=== PATIENT | female | born 1995 | race African-American/Black ===

== ENCOUNTER 2018-02-01 20:47 | Emergency (ER) | payer OTHER ==
--- NOTE | 2018-02-01 21:54 | RAD REPORT ---
EXAM DESCRIPTION: RAD - Ankle Right 3 View - 02/01/2018 9:38 pm CLINICAL HISTORY: Twisting injury to right ankle. COMPARISON: None. FINDINGS: No acute fracture or dislocation is seen. Mild soft tissue swelling is seen about the ankl e.
--- NOTE | 2018-02-01 22:15 | ER ---
Nurse's Notes [facility] Name: Gloria Yeh Age: 22 yrs Sex: Female : 1995 Arrival Date: 02/01/2018 Time: 21:01 Bed 9 Private MD: Diagnosis: Sprain of ankle Presentation: 02/01 21:11 Presenting complaint: Patient states: that she was walking down the stairs and twisted fc her right foot and ankle. Now unable to walk on it due to the pain. Transition of care: patient was not received from another setting of care. Onset of symptoms was February 01, 2018 at 20:45. Care prior to arrival: None. 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 - Social history:: Smoking status: Patient uses tobacco products, smokes one-half pack cigarettes per day. Screenin:13 Abuse screen: Denies threats or abuse. Nutritional screening: No deficits noted. fc Tuberculosis screening: No symptoms or risk factors identified. Fall Risk Fall in past 12 months (25 points). No secondary diagnosis (0 pts). No IV (0 pts). Ambulatory Aid- None/Bed Rest/Nurse Assist (0 pts). Gait- Normal/Bed Rest/Wheelchair (0 pts) Mental Status- Overestimates/Forgets Limitations (15 pts.). Total Posada Fall Scale indicates Low Risk Score (25-44 pts). Fall prevention measures have been instituted. Side Rails Up X 2 Placed close to Nursing Station Frequent Obs/Assesments occuring As available Patient and Family Educated on Fall Prevention Program and strategies. Assessment: 22:02 General: Appears in no apparent distress. uncomfortable, Behavior is calm, cooperative, aj1 appropriate for age. Pain: Complains of pain in right ankle Pain does not radiate. Pain currently is 8 out of 10 on a pain scale. Quality of pain is described as aching, sharp. Neuro: Level of Consciousness is awake, alert, obeys commands, Oriented to person, place, time, situation, Speech is normal, Facial symmetry appears normal. Cardiovascular: Patient's skin is warm and dry. Respiratory: Airway is patent Respiratory effort is even, unlabored, Respiratory pattern is regular, symmetrical. GI: No signs and/or symptoms were reported involving the gastrointestinal system. : No signs and/or symptoms were reported regarding the genitourinary system. EENT: No signs and/or symptoms were reported regarding the EENT system. Derm: No signs and/or symptoms reported regarding the dermatologic system. Skin is pink, warm \T\ dry. normal. Musculoskeletal: Range of motion: limited in right ankle. 22:27 Reassessment: Patient is alert, oriented x 3, equal unlabored respirations, skin bb warm/dry/pink. pt right ankle wrapped with an cameron wrap, pt verbalized understanding of and agrees to plan of care discharge instructions given pt ambulated to exit. Vital Signs: 21:12 Weight 83.91 kg (R); Height 5 ft. 2 in. (157.48 cm) (R); Pain 9/10; fc 22:02 BP 112 / 65; Pulse 75; Resp 16; Temp 97.7; Pulse Ox 100% on R/A; Pain 8/10; aj1 21:12 Body Mass Index 33.84 (83.91 kg, 157.48 cm) fc ED Course: 21:01 Patient arrived in ED. ds1 21:11 Triage completed. fc 21:12 Arm band placed on Patient placed in an exam room. fc 21:13 No provider procedures requiring assistance completed. fc 21:20 Unruly Valladares MD is Attending Physician. gs 21:23 Mela Woodard, ROXANNA is Primary Nurse. aj1 21:33 X-ray completed. Portable x-ray completed in exam room. Patient tolerated procedure bb2 well. 21:34 Ankle Right 3 View XRAY In Process Unspecified. EDMS 22:14 Godwin Renner MD is Referral Physician. gs 22:28 Patient has correct armband on for positive identification. bb 22:28 Patient did not have IV access during this emergency room visit. bb Administered Medications: No medications were administered Outcome: 22:14 Discharge ordered by . gs 22:28 Discharged to home ambulatory. bb 22:28 Condition: stable 22:28 Discharge instructions given to patient, Instructed on discharge instructions, follow up and referral plans. Demonstrated understanding of instructions, follow-up care. 22:28 Patient left the ED. bb Signatures: Dispatcher [employer] EDMela Quiñonez RN RN aj1 Shannon Chavez RN RN fc Sanford, Demi ds1 Ros Almaraz RN RN bb Unruly Valladares MD MD Bernadette Cardenas bb2
--- NOTE | 2018-02-01 22:15 | EDPHYS ---
Physician Documentation [facility] Name: Gloria Yeh Age: 22 yrs Sex: Female : 1995 Arrival Date: 02/01/2018 Time: 21:01 Bed 9 Private MD: ED Physician Unruly Valladares HPI: 02/01 22:11 This 22 yrs old Black Female presents to ER via Wheelchair with complaints of Ankle gs Injury, Fall Injury. 22:11 The patient presents with decreased range of motion, an injury. The complaints affect gs the right ankle. Onset: The symptoms/episode began/occurred acutely, yesterday. Context: The problem was sustained at home, resulted from a mis-step by the patient, on a floor edge, The mechanism of injury involved eversion of the affected ankle. The patient can partially bear weight on the affected extremity. Associated signs and symptoms: Pertinent negatives: fever, numbness, weakness. Modifying factors: the symptoms are aggravated by weight bearing. Severity of symptoms: At their worst the symptoms were moderate, in the emergency department the symptoms are unchanged. The patient has not experienced similar symptoms in the past. 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 - Social history:: Smoking status: Patient uses tobacco products, smokes one-half pack cigarettes per day. ROS: 22:11 All other systems are negative. gs Exam: 22:11 Head/Face: Normocephalic, atraumatic. Eyes: Pupils equal round and reactive to light, gs extra-ocular motions intact. Lids and lashes normal. Conjunctiva and sclera are non-icteric and not injected. Cornea within normal limits. Periorbital areas with no swelling, redness, or edema. ENT: Nares patent. No nasal discharge, no septal abnormalities noted. Tympanic membranes are normal and external auditory canals are clear. Oropharynx with no redness, swelling, or masses, exudates, or evidence of obstruction, uvula midline. Mucous membranes moist. Neck: Trachea midline, no thyromegaly or masses palpated, and no cervical lymphadenopathy. Supple, full range of motion without nuchal rigidity, or vertebral point tenderness. No Meningismus. Chest/axilla: Normal chest wall appearance and motion. Nontender with no deformity. No lesions are appreciated. Cardiovascular: Regular rate and rhythm with a normal S1 and S2. No gallops, murmurs, or rubs. Normal PMI, no JVD. No pulse deficits. Respiratory: Lungs have equal breath sounds bilaterally, clear to auscultation and percussion. No rales, rhonchi or wheezes noted. No increased work of breathing, no retractions or nasal flaring. Abdomen/GI: Soft, non-tender, with normal bowel sounds. No distension or tympany. No guarding or rebound. No evidence of tenderness throughout. Back: No spinal tenderness. No costovertebral tenderness. Full range of motion. Skin: Warm, dry with normal turgor. Normal color with no rashes, no lesions, and no evidence of cellulitis. Neuro: Awake and alert, GCS 15, oriented to person, place, time, and situation. Cranial nerves II-XII grossly intact. Motor strength 5/5 in all extremities. Sensory grossly intact. Cerebellar exam normal. Normal gait. 22:11 Constitutional: The patient appears alert, awake. 22:11 Musculoskeletal/extremity: ROM: no acute changes, Circulation is intact in all extremities. Sensation intact. Joints: the right ankle displays painful range of motion, swelling, tenderness. Vital Signs: 21:12 Weight 83.91 kg (R); Height 5 ft. 2 in. (157.48 cm) (R); Pain 9/10; fc 22:02 BP 112 / 65; Pulse 75; Resp 16; Temp 97.7; Pulse Ox 100% on R/A; Pain 8/10; aj1 21:12 Body Mass Index 33.84 (83.91 kg, 157.48 cm) fc MDM: 21:22 Patient medically screened. gs 22:11 Differential diagnosis: fracture, sprain, arthritis. Data reviewed: vital signs, nurses gs notes. Response to treatment: the patient's symptoms have mildly improved after treatment, and as a result, I will discharge patient. 02/01 21:23 Order name: Ankle Right 3 View XRAY; Complete Time: 22:06 gs Administered Medications: No medications were administered Disposition: 02/01/18 22:14 Discharged to Home. Impression: Sprain of ankle. - Condition is Stable. - Discharge Instructions: Ankle Sprain. - Work release form, Medication Reconciliation Form, Thank You Letter, Antibiotic Education, Prescription Opioid Use form. - Follow up: Godwin Renner MD; When: 2 - 3 days; Reason: Re-evaluation by your physician. Signatures: Dispatcher [employer] EDMS Shannon Chavez RN RN fc Ballard, Brenda, RN RN Unruly Lewis MD MD gs Corrections: (The following items were deleted from the chart) 21:25 21:14 Foot Right 3 View+RAD.RAD.BRZ ordered. EDMS EDMS
== END 2018-02-01 22:28 | disposition home or self-care (01) ==
LOC: ER 20:47
DX: S93.401A Sprain of unspecified ligament of right ankle, initial encounter (principal); W17.89XA Other fall from one level to another, initial encounter; Y93.01 Activity, walking, marching and hiking; Y92.9 Unspecified place or not applicable
CPT/HCPCS: 99283

== ENCOUNTER 2018-12-05 14:30 | Emergency (ER) | payer OTHER, SELFPAY ==
[2018-12-05] MEDS ORDERED: LIDOCAINE 1% MPF 5 ML VIAL ONE (16:17)
--- NOTE | 2018-12-05 16:33 | ER ---
Nurse's Notes [facility] Name: Gloria Yeh Age: 23 yrs Sex: Female : 1995 Arrival Date: 12/05/2018 Time: 14:31 Bed 9 Private MD: None, None Diagnosis: Laceration without foreign body of right hand Presentation: 12/05 15:00 Presenting complaint: Patient states: "I almost fell and the rail that I held on to had aa5 a nail so I cut my hand with the nail". Superficial laceration noted to palmar aspect of right ring finger, no active bleeding noted at this time. Transition of care: patient was not received from another setting of care. Complicating Factors: There are no complicating factors for this patient. Onset of symptoms was December 05, 2018. Risk Assessment: Do you want to hurt yourself or someone else? Patient reports no desire to harm self or others. Initial Sepsis Screen: Does the patient meet any 2 criteria? No. Patient's initial sepsis screen is negative. Does the patient have a suspected source of infection? No. Patient's initial sepsis screen is negative. Care prior to arrival: None. 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 - Social history:: Smoking status: Patient/guardian denies using tobacco. - Ebola Screening: : No symptoms or risks identified at this time. Screenin:06 Abuse screen: Denies threats or abuse. Denies injuries from another. Nutritional aj screening: No deficits noted. Tuberculosis screening: No symptoms or risk factors identified. Fall Risk None identified. Assessment: 16:06 General: Appears in no apparent distress. comfortable, Behavior is calm, cooperative, aj appropriate for age. Pain: Complains of pain in palmar aspect of proximal phalanx of right middle finger. Neuro: Level of Consciousness is awake, alert, obeys commands, Oriented to person, place, time, situation, Appropriate for age. Respiratory: Airway is patent Trachea midline Respiratory effort is even, unlabored, Respiratory pattern is regular, symmetrical. Derm: Skin is intact, is healthy with good turgor, Skin is pink, warm \\T\\ dry. normal. Musculoskeletal: Reports pain in right hand. Injury Description: Laceration sustained to palmar aspect of proximal phalanx of right middle finger is 0.5 to 2.5 cm long. Vital Signs: 15:02 BP 129 / 90; Pulse 79; Resp 16 S; Temp 98.0(TE); Pulse Ox 99% on R/A; Pain 5/10; aa5 ED Course: 14:31 Patient arrived in ED. mr 14:31 None, None is Private Physician. mr 14:59 Arm band placed on. aa5 15:01 Triage completed. aa5 15:35 Daysi Nuñez, ROXANNA is Primary Nurse. aj 15:36 Adryan Vela PA is PHCP. jr8 15:36 Unruly Valladares MD is Attending Physician. jr8 16:07 Patient did not have IV access during this emergency room visit. aj 16:32 Assist provider with laceration repair on right hand that was 2.5 cm. or less using iwnnie sutures. Set up tray. Performed by Adryan ROBBINS Patient tolerated well. 17:02 Patient has correct armband on for positive identification. aj Administered Medications: 16:32 Drug: Lidocaine (1 %) 5 mg Route: Infiltration; aj 16:39 Drug: Tetanus-Diphtheria Toxoid Adult 0.5 ml {Compatibility Test Engineer: [employer]. Exp: aj 11/12/2020. Lot #: [id number]. } Route: IM; Site: right deltoid; 17:02 Follow up: Response: No adverse reaction aj Outcome: 16:33 Discharge ordered by . jrHarish 17:01 Discharged to home ambulatory. aj 17:01 Condition: good 17:01 Discharge instructions given to patient, Instructed on discharge instructions, follow up and referral plans. Demonstrated understanding of instructions, follow-up care. 17:02 Patient left the ED. aj Signatures: Daysi Nuñez, RN Chloé Fitch TramaineHilary RN RN aa5 Roszak, Josh, PA PA jrHarish
--- NOTE | 2018-12-05 16:34 | EDPHYS ---
Physician Documentation [facility] Name: Gloria Yeh Age: 23 yrs Sex: Female : 1995 Arrival Date: 12/05/2018 Time: 14:31 Bed 9 Private MD: None, None ED Physician Unruly Valladares HPI: 12/05 16:27 This 23 yrs old Black Female presents to ER via Ambulatory with complaints of jr8 Laceration To Hand. 16:27 The laceration(s) is(are) located on the right hand. Onset: The symptoms/episode jr8 began/occurred acutely, today. Associated signs and symptoms: The patient has no apparent associated signs or symptoms. The patient has not experienced similar symptoms in the past. The patient has not recently seen a physician. Accidently scrapped right hand on nail causing small laceration to MTP region helm aspect . 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 - Social history:: Smoking status: Patient/guardian denies using tobacco. - Ebola Screening: : No symptoms or risks identified at this time. ROS: 16:27 Eyes: Negative for injury, pain, redness, and discharge, ENT: Negative for injury, jr8 pain, and discharge, Neck: Negative for injury, pain, and swelling, Cardiovascular: Negative for chest pain, palpitations, and edema, Respiratory: Negative for shortness of breath, cough, wheezing, and pleuritic chest pain, Abdomen/GI: Negative for abdominal pain, nausea, vomiting, diarrhea, and constipation, Back: Negative for injury and pain, MS/Extremity: Negative for injury and deformity, Neuro: Negative for headache, weakness, numbness, tingling, and seizure. 16:27 Skin: Positive for laceration(s), of the right hand. Exam: 16:27 Eyes: Pupils equal round and reactive to light, extra-ocular motions intact. Lids and jr8 lashes normal. Conjunctiva and sclera are non-icteric and not injected. Cornea within normal limits. Periorbital areas with no swelling, redness, or edema. ENT: Nares patent. No nasal discharge, no septal abnormalities noted. Tympanic membranes are normal and external auditory canals are clear. Oropharynx with no redness, swelling, or masses, exudates, or evidence of obstruction, uvula midline. Mucous membranes moist. Neck: Trachea midline, no thyromegaly or masses palpated, and no cervical lymphadenopathy. Supple, full range of motion without nuchal rigidity, or vertebral point tenderness. No Meningismus. Cardiovascular: Regular rate and rhythm with a normal S1 and S2. No gallops, murmurs, or rubs. Normal PMI, no JVD. No pulse deficits. Respiratory: Lungs have equal breath sounds bilaterally, clear to auscultation and percussion. No rales, rhonchi or wheezes noted. No increased work of breathing, no retractions or nasal flaring. Abdomen/GI: Soft, non-tender, with normal bowel sounds. No distension or tympany. No guarding or rebound. No evidence of tenderness throughout. Back: No spinal tenderness. No costovertebral tenderness. Full range of motion. MS/ Extremity: Pulses equal, no cyanosis. Neurovascular intact. Full, normal range of motion. Neuro: Awake and alert, GCS 15, oriented to person, place, time, and situation. Cranial nerves II-XII grossly intact. Motor strength 5/5 in all extremities. Sensory grossly intact. Cerebellar exam normal. Normal gait. 16:27 Skin: injury, laceration(s), the wound is approximately 2 cm(s), with a depth of .5 cm(s), of the MTP helm aspect right hand over the 3rd digit, that can be described as no foreign body, linear, without bleeding. Vital Signs: 15:02 BP 129 / 90; Pulse 79; Resp 16 S; Temp 98.0(TE); Pulse Ox 99% on R/A; Pain 5/10; aa5 Laceration: 16:27 Wound Repair of 2cm ( 0.8in ) subcutaneous laceration to right hand. Linear shaped.. jr8 Distal neuro/vascular/tendon intact. Anesthesia: Local anesthetic administered with 1 mls of 1% lidocaine. Wound prep: Moderate cleansing with betadine, Wound irrigation with saline, Wound explored extensively. Skin closed with 3 4-0 Prolene using interrupted sutures and sterile technique. Patient tolerated well. MDM: 15:36 Patient medically screened. jr8 16:32 Data reviewed: vital signs, nurses notes, and as a result, I will discharge patient. jr8 Data interpreted: Pulse oximetry: on room air is 99 %. Interpretation: normal. Counseling: I had a detailed discussion with the patient and/or guardian regarding: the historical points, exam findings, and any diagnostic results supporting the discharge/admit diagnosis, the need for outpatient follow up, a family practitioner, to return to the emergency department if symptoms worsen or persist or if there are any questions or concerns that arise at home. 12/05 16:32 Order name: Prolene, Sutures; Complete Time: 16:32 12/05 16:32 Order name: Dressing - Wound; Complete Time: 16:32 12/05 16:32 Order name: Gloves, Sterile; Complete Time: 16:32 12/05 16:32 Order name: Setup Suture Tray; Complete Time: 16:32 Administered Medications: 16:32 Drug: Lidocaine (1 %) 5 mg Route: Infiltration; 16:39 Drug: Tetanus-Diphtheria Toxoid Adult 0.5 ml {Casting Carrier: [employer]. Exp: aj 11/12/2020. Lot #: [id number]. } Route: IM; Site: right deltoid; 17:02 Follow up: Response: No adverse reaction Disposition: 17:16 Co-signature as Attending Physician, Unruly Valladares MD. Disposition: 12/05/18 16:33 Discharged to Home. Impression: Laceration without foreign body of right hand. - Condition is Stable. - Discharge Instructions: Laceration Care, Adult. - Work release form, Medication Reconciliation Form, Thank You Letter, Antibiotic Education, Prescription Opioid Use form. - Follow up: Private Physician; When: 7 - 10 days; Reason: Wound Recheck, Recheck today's complaints, Continuance of care, Staple/Suture removal, Re-evaluation by your physician. - Problem is new. - Symptoms have improved. Signatures: Daysi Nuñez RN RN aj Calderon, Audri, RN RN aa5 Adryan Vela PA PA jr8 Unruly Valladares MD MD Corrections: (The following items were deleted from the chart) 17:02 16:33 12/05/2018 16:33 Discharged to Home. Impression: Laceration without foreign body aj of right hand. Condition is Stable. Forms are Medication Reconciliation Form, Thank You Letter, Antibiotic Education, Prescription Opioid Use. Follow up: Private Physician; When: 7 - 10 days; Reason: Wound Recheck, Recheck today's complaints, Continuance of care, Staple/Suture removal, Re-evaluation by your physician. Problem is new. Symptoms have improved. jr8
[2018-12-05] MEDS ORDERED: TETANUS & DIPHTHERIA TOX,ADULT 0.5 ML VIAL ONE (16:47)
== END 2018-12-05 17:02 | disposition home or self-care (01) ==
LOC: ER 14:30
PROC: 0JQJ0ZZ Repair Right Hand Subcutaneous Tissue and Fascia, Open Approach (ICD-10-PCS; principal; 2018-12-05)
DX: S61.411A Laceration without foreign body of right hand, initial encounter (principal); W22.8XXA Striking against or struck by other objects, initial encounter; Y93.89 Activity, other specified; Y92.9 Unspecified place or not applicable; Z23 Encounter for immunization
CPT/HCPCS: 90714; 99283

== ENCOUNTER 2019-10-28 09:46 | Emergency (ER) | payer SELFPAY ==
[2019-10-28] MEDS ORDERED: AZITHROMYCIN 250 MG TAB ONE (10:22)
--- NOTE | 2019-10-28 10:47 | ER ---
Nurse's Notes [facility] Name: Gloria Yeh Age: 23 yrs Sex: Female : 1995 Arrival Date: 10/28/2019 Time: 09:50 Bed 7 Private MD: None, None Diagnosis: Bronchitis, not specified as acute or chronic;Fever, unspecified Presentation: 10/28 09:58 Presenting complaint: Patient states: sore throat, cough, ear ache and intermittent ss fever x 2-3 days. Transition of care: patient was not received from another setting of care. Onset of symptoms was October 25, 2019. Risk Assessment: Do you want to hurt yourself or someone else? Patient reports no desire to harm self or others. Initial Sepsis Screen: Does the patient meet any 2 criteria? HR > 90 bpm. Does the patient have a suspected source of infection? No. Patient's initial sepsis screen is negative. Care prior to arrival: None. 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 - Social history:: Smoking status: Patient uses tobacco products, smokes one pack cigarettes per day. - Ebola Screening: : Patient denies exposure to infectious person Patient denies travel to an Ebola-affected area in the 21 days before illness onset. - Family history:: not pertinent. Screenin:04 Abuse screen: Denies threats or abuse. Denies injuries from another. Nutritional ca1 screening: No deficits noted. Tuberculosis screening: No symptoms or risk factors identified. Fall Risk None identified. Assessment: 10:04 General: Appears in no apparent distress. comfortable, Behavior is calm, cooperative, ca1 appropriate for age. General: Reports fever for > 3 days. Pain: Complains of pain in right ear Pain currently is 6 out of 10 on a pain scale. Pain began 2-3 days ago. Is continuous. Neuro: Level of Consciousness is awake, alert, obeys commands, Oriented to person, place, time, situation, Appropriate for age. Cardiovascular: Heart tones S1 S2 present Capillary refill < 3 seconds Patient's skin is warm and dry. Respiratory: Airway is patent Respiratory effort is even, unlabored, Respiratory pattern is regular, symmetrical, Breath sounds are clear bilaterally. GI: Abdomen is round non-distended, Bowel sounds present X 4 quads. Abd is soft and non tender X 4 quads. : No deficits noted. No signs and/or symptoms were reported regarding the genitourinary system. EENT: Tympanic membrane clear on left ear and right ear Ear canal clear on left ear and right ear Throat is pink. EENT: Reports nasal congestion. Derm: Skin is intact, is healthy with good turgor, Skin is pink, warm \T\ dry. Musculoskeletal: Circulation, motion, and sensation intact. Capillary refill < 3 seconds, Range of motion: intact in all extremities. 10:09 Reassessment: provider at bedside at this time. tw2 10:45 Reassessment: Patient appears in no apparent distress at this time. Patient is alert, ca1 oriented x 3, equal unlabored respirations, skin warm/dry/pink. Vital Signs: 09:57 BP 129 / 77; Pulse 94; Resp 16; Temp 98.2(TE); Pulse Ox 100% on R/A; Weight 81.65 kg; ss Height 5 ft. 2 in. (157.48 cm); Pain 6/10; 10:45 BP 117 / 84; Pulse 96; Resp 17 S; Temp 98.2(O); Pulse Ox 100% on R/A; ca1 09:57 Body Mass Index 32.92 (81.65 kg, 157.48 cm) ED Course: 09:50 Patient arrived in ED. mr 09:50 None, None is Private Physician. mr 09:51 Son Yeh MD is Attending Physician. jenny 09:57 Arm band placed on right wrist. ss 09:59 Triage completed. ss 10:01 Sarah Edmondson, ROXANNA is Primary Nurse. ca1 10:04 Patient has correct armband on for positive identification. Bed in low position. Call ca1 light in reach. Side rails up X 1. Pulse ox on. NIBP on. Warm blanket given. 10:04 No provider procedures requiring assistance completed. Patient did not have IV access ca1 during this emergency room visit. 10:18 Flu Sent. ca1 Administered Medications: 10:21 Drug: Zithromax 500 mg Route: PO; ca1 10:45 Follow up: Response: No adverse reaction ca1 10:53 Drug: predniSONE 40 mg Route: PO; ca1 10:53 Follow up: Response: Medication administered at discharge. ca1 Outcome: 10:46 Discharge ordered by . jenny 10:56 Discharged to home ambulatory. ca1 10:56 Condition: stable 10:56 Discharge instructions given to patient, Instructed on discharge instructions, follow up and referral plans. medication usage, Demonstrated understanding of instructions, follow-up care, medications, Prescriptions given X 4. 10:56 Patient left the ED. ca1 10:56 Discharged to home ambulatory. tw2 10:56 Condition: stable Signatures: Son Yeh MD MD cha Rivera, Mary mr Smirch, Shelby, RN RN Lyndsey Jaramillo RN RN tw2 Sarah Edmondson RN RN ca1
--- NOTE | 2019-10-28 10:47 | EDPHYS ---
Physician Documentation [facility] Name: Gloria Yeh Age: 23 yrs Sex: Female : 1995 Arrival Date: 10/28/2019 Time: 09:50 Bed 7 Private MD: None, None ED Physician Son Yeh HPI: 10/28 10:13 This 23 yrs old Black Female presents to ER via Ambulatory with complaints of Sore jenny Throat, Cough, Ear Pain. 10:13 The patient presents with sore throat. The patient describes throat pain as burning, jenny constant. Onset: The symptoms/episode began/occurred 2 day(s) ago. Severity of symptoms: At their worst the symptoms were mild, in the emergency department the symptoms are unchanged. Modifying factors: The symptoms are alleviated by. Associated signs and symptoms: The patient has no apparent associated signs or symptoms. The patient has experienced similar episodes in the past, a few times. 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 - Social history:: Smoking status: Patient uses tobacco products, smokes one pack cigarettes per day. - Ebola Screening: : Patient denies exposure to infectious person Patient denies travel to an Ebola-affected area in the 21 days before illness onset. - Family history:: not pertinent. ROS: 10:13 Eyes: Negative for injury, pain, redness, and discharge, Neck: Negative for injury, jenny pain, and swelling, Cardiovascular: Negative for chest pain, palpitations, and edema, Respiratory: Negative for shortness of breath, cough, wheezing, and pleuritic chest pain, Abdomen/GI: Negative for abdominal pain, nausea, vomiting, diarrhea, and constipation, Back: Negative for injury and pain, : Negative for injury, bleeding, discharge, and swelling, MS/Extremity: Negative for injury and deformity, Skin: Negative for injury, rash, and discoloration, Neuro: Negative for headache, weakness, numbness, tingling, and seizure, Psych: Negative for depression, anxiety, suicide ideation, homicidal ideation, and hallucinations, Allergy/Immunology: Negative for hives, rash, and allergies, Endocrine: Negative for neck swelling, polydipsia, polyuria, polyphagia, and marked weight changes, Hematologic/Lymphatic: Negative for swollen nodes, abnormal bleeding, and unusual bruising. 10:13 Constitutional: Positive for chills, fatigue. 10:13 ENT: Positive for rhinorrhea, sinus congestion, sinus pain, sore throat. Exam: 10:13 Constitutional: This is a well developed, well nourished patient who is awake, alert, jenny and in no acute distress. Head/Face: Normocephalic, atraumatic. Eyes: Pupils equal round and reactive to light, extra-ocular motions intact. Lids and lashes normal. Conjunctiva and sclera are non-icteric and not injected. Cornea within normal limits. Periorbital areas with no swelling, redness, or edema. ENT: Nares patent. No nasal discharge, no septal abnormalities noted. Tympanic membranes are normal and external auditory canals are clear. Oropharynx with no redness, swelling, or masses, exudates, or evidence of obstruction, uvula midline. Mucous membranes moist. Neck: Trachea midline, no thyromegaly or masses palpated, and no cervical lymphadenopathy. Supple, full range of motion without nuchal rigidity, or vertebral point tenderness. No Meningismus. Chest/axilla: Normal chest wall appearance and motion. Nontender with no deformity. No lesions are appreciated. Respiratory: Lungs have equal breath sounds bilaterally, clear to auscultation and percussion. No rales, rhonchi or wheezes noted. No increased work of breathing, no retractions or nasal flaring. Abdomen/GI: Soft, non-tender, with normal bowel sounds. No distension or tympany. No guarding or rebound. No evidence of tenderness throughout. Back: No spinal tenderness. No costovertebral tenderness. Full range of motion. Skin: Warm, dry with normal turgor. Normal color with no rashes, no lesions, and no evidence of cellulitis. MS/ Extremity: Pulses equal, no cyanosis. Neurovascular intact. Full, normal range of motion. Neuro: Awake and alert, GCS 15, oriented to person, place, time, and situation. Cranial nerves II-XII grossly intact. Motor strength 5/5 in all extremities. Sensory grossly intact. Cerebellar exam normal. Normal gait. Psych: Awake, alert, with orientation to person, place and time. Behavior, mood, and affect are within normal limits. 10:13 Cardiovascular: Rate: normal, Rhythm: regular, Pulses: no pulse deficits are appreciated, Heart sounds: normal, JVD: is not appreciated. Vital Signs: 09:57 BP 129 / 77; Pulse 94; Resp 16; Temp 98.2(TE); Pulse Ox 100% on R/A; Weight 81.65 kg; ss Height 5 ft. 2 in. (157.48 cm); Pain 6/10; 10:45 BP 117 / 84; Pulse 96; Resp 17 S; Temp 98.2(O); Pulse Ox 100% on R/A; ca1 09:57 Body Mass Index 32.92 (81.65 kg, 157.48 cm) ss MDM: 09:53 Patient medically screened. [facility] 10:19 Data reviewed: vital signs, nurses notes, lab test result(s), Flu: negative. [facility] 10/28 10:11 Order name: Flu; Complete Time: 10:43 ca1 Administered Medications: 10:21 Drug: Zithromax 500 mg Route: PO; ca1 10:45 Follow up: Response: No adverse reaction ca1 10:53 Drug: predniSONE 40 mg Route: PO; ca1 10:53 Follow up: Response: Medication administered at discharge. ca1 Disposition: 10/28/19 10:46 Discharged to Home. Impression: Bronchitis, not specified as acute or chronic, Fever, unspecified. - Condition is Stable. - Discharge Instructions: Acute Bronchitis, Adult, Fever, Adult, Acute Bronchitis, [id number], Tobacco Use Disorder. - Prescriptions for Pema- D 12 Hour 60-120 mg Oral Tablet Sustained Release 12 hr - take 1 tablet by ORAL route every 12 hours As needed; 20 tablet. Medrol (Isma) 4 mg Oral Tablets, Dose Pack - take 1 tablet by ORAL route as directed - follow package instructions; 1 packet. Guaifenesin AC 10- 100 mg/5 mL Oral Liquid - take 10 milliliters by ORAL route every 6 hours As needed; 150 milliliter. Zithromax 500 mg Oral Tablet - take 1 tablet by ORAL route once daily for 4 days; 4 tablet. - Medication Reconciliation Form, Thank You Letter, Antibiotic Education, Prescription Opioid Use, Work release form form. - Follow up: Private Physician; When: 2 - 3 days; Reason: Recheck today's complaints, Continuance of care, Re-evaluation by your physician. - Problem is new. - Symptoms have improved. Signatures: Dispatcher [employer] Son Sapp MD MD cha Smirch, Shelby, RN RN ss Sarah Edmondson RN RN ca1 Corrections: (The following items were deleted from the chart) 10:56 10:46 10/28/2019 10:46 Discharged to Home. Impression: Bronchitis, not specified as ca1 acute or chronic; Fever, unspecified. Condition is Stable. Discharge Instructions: Acute Bronchitis, Adult, Fever, Adult, Acute Bronchitis, [id number], Tobacco Use Disorder. Prescriptions for Pema-D 12 Hour 60-120 mg Oral Tablet Sustained Release 12 hr - take 1 tablet by ORAL route every 12 hours As needed; 20 tablet, Medrol (Isma) 4 mg Oral Tablets, Dose Pack - take 1 tablet by ORAL route as directed - follow package instructions; 1 packet, Guaifenesin AC 10-100 mg/5 mL Oral Liquid - take 10 milliliters by ORAL route every 6 hours As needed; 150 milliliter, Zithromax 500 mg Oral Tablet - take 1 tablet by ORAL route once daily for 4 days; 4 tablet. and Forms are Work release form, Medication Reconciliation Form, Thank You Letter, Antibiotic Education, Prescription Opioid Use. Follow up: Private Physician; When: 2 - 3 days; Reason: Recheck today's complaints, Continuance of care, Re-evaluation by your physician. Problem is new. Symptoms have improved. jenny
[2019-10-28] MEDS ORDERED: predniSONE 10 MG TAB ONE (10:51)
[2019-10-28 11:36] VITALS: TEMP 98.2; O2SAT 100
[2019-10-28 11:45] VITALS: BP 117/84
== END 2019-10-28 10:56 | disposition home or self-care (01) ==
LOC: ER 09:46
DX: J40 Bronchitis, not specified as acute or chronic (principal); R50.9 Fever, unspecified; F17.210 Nicotine dependence, cigarettes, uncomplicated
CPT/HCPCS: 87804; 99284; J7512

== ENCOUNTER 2020-03-23 17:37 | Emergency (ER) | payer OTHER, SELFPAY ==
--- OUTSIDE RECORDS SUMMARY | 2020-03-23 17:39 | XMS REPORT ---
:1995 Author Organization [facility] t Address [address] [place] [address] Care Team Providers Name Role Phone Sravani Bullock Attending Clinician Doctor Unassigned, Name Attending Clinician Unavailable Problems This patient has no known problems. Allergies, Adverse Reactions, Alerts This patient has no known allergies or adverse reactions. Medications This patient has no known medications. Procedures This patient has no known procedures. Encounters Start End Encounter Admission Attending Care Care Encounter Source Date/Time Date/Time Type Type Clinicians Facility Department ID 2019-12-06 2019-12-06 Emergency Astrid Jaimes [facility] [id number] 16:24:12 18:19:00 Sravani Estrada [id number] [place] [id number] [place] [id number] 2019-12-06 2019-12-06 Orders Doctor PRATER [id number] 00:00:00 00:00:00 Only UnassCAMILO torres [id number] [place] [facility] [id number] Results This patient has no known results.
[2020-03-23] MEDS ORDERED: ACETAMINOPHEN 500 MG TAB ONE (19:39)
[2020-03-23 20:21] VITALS: TEMP 98.7
[2020-03-23 20:22] VITALS: BP 117/73; O2SAT 98
--- NOTE | 2020-03-25 18:14 | ER ---
Nurse's Notes [facility] Name: Gloria Yeh Age: 24 yrs Sex: Female : 1995 Arrival Date: 03/23/2020 Time: 17:39 Bed 15 Private MD: Diagnosis: Dental caries;Gingivitis and periodontal diseases Presentation: 03/23 17:56 Chief complaint: Patient states: popped tooth abscess today, reports left upper tooth em pain, afterwards developed N/D, denies abd pain or fever. Coronavirus screen: Proceed with normal triage. Patient denies a cough. Patient denies shortness of breath or difficulty breathing. Patient denies measured and/or subjective temperature greater than 100.4F prior to today's visit. Patient denies travel on a cruise ship or to a country the [facility] currently lists as an affected area. Patient denies contact with known and/or suspected case of COVID-19. Ebola Screen: Patient negative for fever greater than or equal to 101.5 degrees Fahrenheit, and additional compatible Ebola Virus Disease symptoms Patient denies exposure to infectious person. Patient denies travel to an Ebola-affected area in the 21 days before illness onset. No symptoms or risks identified at this time. Initial Sepsis Screen: Does the patient meet any 2 criteria? No. Patient's initial sepsis screen is negative. Does the patient have a suspected source of infection? No. Patient's initial sepsis screen is negative. Risk Assessment: Do you want to hurt yourself or someone else? Patient reports no desire to harm self or others. Onset of symptoms was March 23, 2020. 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 - Social history:: Smoking status: Patient reports the use of cigarette tobacco products, smokes one-half pack cigarettes per day. Screenin:20 Abuse screen: Denies threats or abuse. Nutritional screening: No deficits noted. ea Tuberculosis screening: No symptoms or risk factors identified. Fall Risk None identified. Assessment: 19:15 General: Appears uncomfortable, Behavior is calm, cooperative, appropriate for age. ea Pain: Complains of pain in gums. Neuro: Level of Consciousness is awake, alert, obeys commands, Oriented to person, place, time, situation. Cardiovascular: Patient's skin is warm and dry. Respiratory: Airway is patent Respiratory effort is even, unlabored, Respiratory pattern is regular, symmetrical. EENT: Reports pain in gums. Derm: Skin is pink, warm \T\ dry. Vital Signs: 17:56 BP 121 / 93; Pulse 88; Resp 18; Temp 98.7; Pulse Ox 99% on R/A; Weight 77.11 kg; Height em 5 ft. 3 in. (160.02 cm); Pain 7/10; 19:58 BP 117 / 73; Pulse 63; Resp 18; Pulse Ox 98% ; ea 17:56 Body Mass Index 30.11 (77.11 kg, 160.02 cm) em ED Course: 17:39 Patient arrived in ED. ag5 17:59 Triage completed. em 17:59 Arm band placed on Patient placed in waiting room, Patient notified of wait time. em 19:02 Evgeny Claros MD is Attending Physician. [facility] 19:03 Deborah Nguyen, RN is Primary Nurse. ea 19:20 Patient has correct armband on for positive identification. Bed in low position. Call ea light in reach. Side rails up X2. 20:02 Gerson Pride DDS is Referral Physician. [facility] 20:15 No provider procedures requiring assistance completed. Patient did not have IV access ea during this emergency room visit. Administered Medications: 19:33 Drug: Tylenol 1000 mg Route: PO; ea 20:16 Follow up: Response: No adverse reaction ea Outcome: 20:02 Discharge ordered by . 7 20:15 Discharged to home ambulatory. ea 20:15 Condition: stable 20:15 Discharge instructions given to patient, Instructed on discharge instructions, follow up and referral plans. medication usage, Demonstrated understanding of instructions, follow-up care, medications, Prescriptions given X 3. 20:16 Patient left the ED. ea Signatures: Gurpreet Geller RN RN em Deborah Nguyen RN RN Zehra Whitten ag5 Claros, Evgeny, MD MD [id number]
--- NOTE | 2020-03-25 18:14 | EDPHYS ---
Physician Documentation [facility] Name: Gloria Yeh Age: 24 yrs Sex: Female : 1995 Arrival Date: 03/23/2020 Time: 17:39 Bed 15 Private MD: ED Physician Evgeny Claros HPI: 03/23 19:28 This 24 yrs old Black Female presents to ER via Ambulatory with complaints of tooth mh7 abscess/pain, nausea,diarrhea. 19:28 The patient presents with pain. The problem is located in the left upper tooth. Onset: mh7 The symptoms/episode began/occurred this morning. Duration: The symptoms are intermittent, with no pattern. Modifying factors: The symptoms are alleviated by nothing, the symptoms are aggravated by chewing, cold fluids. Associated signs and symptoms: Pertinent positives: nausea, Pertinent negatives: anorexia, chills, dysphagia, fever, inability to eat, redness in area, swelling, vomiting. Severity of symptoms: At their worst the symptoms were moderate, this morning, in the emergency department the symptoms have improved, markedly. Patient states that she popped an abscess near a tooth on her left upper gum this morning. She then took Ibuprofen and started to have nausea and diarrhea three times. Denies any abdominal pain, fever, vomiting, facial/neck swelling, difficulty speaking.. 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 - Social history:: Smoking status: Patient reports the use of cigarette tobacco products, smokes one-half pack cigarettes per day. ROS: 19:55 Constitutional: Negative for fever, chills, and weight loss, Eyes: Negative for injury, mh7 pain, redness, and discharge, ENT: Negative for injury, pain, and discharge, Neck: Negative for injury, pain, and swelling, Cardiovascular: Negative for chest pain, palpitations, and edema, Respiratory: Negative for shortness of breath, cough, wheezing, and pleuritic chest pain, Back: Negative for injury and pain, : Negative for injury, bleeding, discharge, and swelling, MS/Extremity: Negative for injury and deformity, Skin: Negative for injury, rash, and discoloration, Neuro: Negative for headache, weakness, numbness, tingling, and seizure, Psych: Negative for depression, anxiety, suicide ideation, homicidal ideation, and hallucinations, Allergy/Immunology: Negative for hives, rash, and allergies, Endocrine: Negative for neck swelling, polydipsia, polyuria, polyphagia, and marked weight changes, Hematologic/Lymphatic: Negative for swollen nodes, abnormal bleeding, and unusual bruising. Exam: 19:55 Constitutional: This is a well developed, well nourished patient who is awake, alert, mh7 and in no acute distress. Head/Face: Normocephalic, atraumatic. Eyes: Pupils equal round and reactive to light, extra-ocular motions intact. Lids and lashes normal. Conjunctiva and sclera are non-icteric and not injected. Cornea within normal limits. Periorbital areas with no swelling, redness, or edema. 19:55 Neck: Trachea midline, no thyromegaly or masses palpated, and no cervical lymphadenopathy. Supple, full range of motion without nuchal rigidity, or vertebral point tenderness. No Meningismus. Chest/axilla: Normal chest wall appearance and motion. Nontender with no deformity. No lesions are appreciated. Cardiovascular: Regular rate and rhythm with a normal S1 and S2. No gallops, murmurs, or rubs. Normal PMI, no JVD. No pulse deficits. Respiratory: Lungs have equal breath sounds bilaterally, clear to auscultation and percussion. No rales, rhonchi or wheezes noted. No increased work of breathing, no retractions or nasal flaring. Abdomen/GI: Soft, non-tender, with normal bowel sounds. No distension or tympany. No guarding or rebound. No evidence of tenderness throughout. Back: No spinal tenderness. No costovertebral tenderness. Full range of motion. Skin: Warm, dry with normal turgor. Normal color with no rashes, no lesions, and no evidence of cellulitis. MS/ Extremity: Pulses equal, no cyanosis. Neurovascular intact. Full, normal range of motion. Neuro: Awake and alert, GCS 15, oriented to person, place, time, and situation. Cranial nerves II-XII grossly intact. Motor strength 5/5 in all extremities. Sensory grossly intact. Cerebellar exam normal. Normal gait. Psych: Awake, alert, with orientation to person, place and time. Behavior, mood, and affect are within normal limits. 19:55 ENT: External ear(s): are unremarkable, Ear canal(s): are normal, TM's: are normal, Nose: is normal, Mouth: Lips: normal, Oral mucosa: normal, Gums: reddened, on the gums, Tongue: is normal, abscess, is not appreciated, drooling, is not appreciated, Posterior pharynx: is normal, Dental exam: dental caries, that is mild, specifically in the upper left second bicuspid (#13), Voice: is normal, Breath odor: is normal. Vital Signs: 17:56 BP 121 / 93; Pulse 88; Resp 18; Temp 98.7; Pulse Ox 99% on R/A; Weight 77.11 kg; Height em 5 ft. 3 in. (160.02 cm); Pain 7/10; 19:58 BP 117 / 73; Pulse 63; Resp 18; Pulse Ox 98% ; ea 17:56 Body Mass Index 30.11 (77.11 kg, 160.02 cm) em MDM: 19:26 Patient medically screened. [facility] 19:55 Differential diagnosis: dental caries, gingivitis, dental abscess, pericoronitis, [facility] aphthous ulcers, acute necrotizing ulcerative gingivitis, gingivostomatitis. Data reviewed: vital signs, nurses notes, lab test result(s), urinalysis. 03/23 19:15 Order name: Urine Dipstick-Ancillary (obtain specimen); Complete Time: 19:33 ea 03/23 19:15 Order name: Urine Test (obtain specimen); Complete Time: 19:32 ea Administered Medications: 19:33 Drug: Tylenol 1000 mg Route: PO; ea 20:16 Follow up: Response: No adverse reaction ea Disposition: 03/23/20 20:02 Discharged to Home. Impression: Dental caries, Gingivitis and periodontal diseases. - Condition is Stable. - Discharge Instructions: Dental Pain, Gingivitis, [id number]. - Prescriptions for Periogard 0.12 % Mucous Membrane mouthwash - place 15 milliliter by MUCOUS MEMBRANE route 2 times per day for 5 days after brushing teeth, swish in mouth for 30 seconds then spit out; 150 milliliter. penicillin V potassium 500 mg Oral tablet - take 1 tablet by ORAL route every 6 hours for 7 days; 28 tablet. Ultracet 37.5- 325 mg Oral Tablet - take 1 tablet by ORAL route every 6 hours - for up to 5 days; do not exceed 8 tablets per day.; 30 tablet. - Medication Reconciliation Form, Thank You Letter, Antibiotic Education, Prescription Opioid Use form. - Follow up: Private Physician; When: 1 - 2 days; Reason: Worsening of condition, Re-evaluation by your physician. Follow up: Gerson Pride DDS; When: 1 - 2 days; Reason: Worsening of condition, Recheck today's complaints. - Problem is an acute exacerbation. - Symptoms have improved. Signatures: Gurpreet Geller, RN RN Deborah Mccloud RN RN Evgeny Miranda MD MD mh7 Corrections: (The following items were deleted from the chart) 20:16 20:02 03/23/2020 20:02 Discharged to Home. Impression: Dental caries; Gingivitis and ea periodontal diseases. Condition is Stable. Forms are Medication Reconciliation Form, Thank You Letter, Antibiotic Education, Prescription Opioid Use. Follow up: Private Physician; When: 1 - 2 days; Reason: Worsening of condition, Re-evaluation by your physician. Follow up: Gerson Pride; When: 1 - 2 days; Reason: Worsening of condition, Recheck today's complaints. Problem is an acute exacerbation. Symptoms have improved. mh7
== END 2020-03-23 20:16 | disposition home or self-care (01) ==
LOC: ER 17:37
DX: K05.10 Chronic gingivitis, plaque induced (principal); K05.6 Periodontal disease, unspecified; F17.210 Nicotine dependence, cigarettes, uncomplicated
CPT/HCPCS: 99283

== ENCOUNTER 2022-03-20 09:10 | Emergency (ER) | payer OTHER ==
--- OUTSIDE RECORDS SUMMARY | 2022-03-20 09:13 | XMS REPORT | Continuity of Care Document ---
:[address] [facility] t Address [address] [place] [address] Care Team Providers Name Role Phone Perri CHING Primary Care Physician Unavailable Varun Cavanaugh Attending Clinician Tai NOGUEIRA Attending Clinician Unavailable Varun TUTTLE Attending Clinician Unavailable Doctor Unassigned, Name Attending Clinician Unavailable Sravani Bullock Attending Clinician Payers Payer Name Policy Type Policy Number Effective Date Expiration Date S ource Problems Condition Condition Condition Status Onset Resolution Last Treating Co mments Source Name Details Category Date Date Treatment Clinician Date Nexplanon Nexplanon Disease Active Uni vers in place in place 4-27 ity of 00:00: [place] 00 Medical Branch Chlamydia Chlamydia Disease Active Uni vers trachomati trachomati 5-15 it y of s s 00:00: [place] infection infection 00 [facility] of lower of lower Branch genitourin genitourin nain sites nain sites Screening Screening Disease Active 2016-10 Uni vers examinatio examinatio 0-26 it y of n for STD n for STD 00:00[place] (sexually (sexually 00 Medi jeffrey transmitte transmitte Br anch d disease) d disease) Tobacco Tobacco Disease Active 2016-10 Univers use use 0-26 ity of disorder disorder 00:00: [place] 00 Medical Branch Class 2 Class 2 Disease Active 2016-10 Univers obesity obesity 0-26 ity of due to due to 00:00: [place] excess excess 00 Medical calories calories Branch with body with body mass index mass index (BMI) of (BMI) of 38.0 to 38.0 to 38.9 in 38.9 in adult, adult, unspecifie unspecifie d whether d whether serious serious comorbidit comorbidit y present y present BMI BMI Disease Active 2016-10 Univers 38.0-38.9, 38.0-38.9, 0-26 it y of adult adult 00:00: [address] Anemia, Anemia, Disease Active Univers 9-14 it y of 00:00: [address] 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 suppressi on at 36 weeks History of History of Disease Active U nivers heart heart 2-10 ity of murmur in murmur in 00:00: Radha anguiano childhood childhood 00 [facility] Branch Tobacco Tobacco Disease Active Univers use use 2-10 ity of affecting affecting 00:00: Radha s , , 00 Me dical antepartum antepartum Br anch Depression Depression Disease Active U nivers , , 2-10 ity of unspecifie [place]specif[place] 00 Medical depression depression Br anch type type Generalize Generalize Disease Active U nivers d anxiety d anxiety 2-10 ity of disorder disorder 00:00: [address] Allergies, Adverse Reactions, Alerts Allergy Allergy Status Severity Reaction(s) Onset Inactive Treating Comm ents Source Name Type Date Date Clinician NO KNOWN Drug Active Univers ALLERGIE Class ity of S [facility] Social History Social Habit Start Date Stop Date Quantity Comments Source History [facility] University o f Alcohol Frequency [place] [facility] History [facility] University o f Alcohol Std Drinks [facility] History [facility] University o f Alcohol Binge [place] [facility] Exposure to Not sure University of SARS-CoV-2 (event) [facility] Alcohol intake 2021-02-18 2021-02-18 0 /d University of 00:00:00 00:00:00 [facility] Alcohol Comment 2017-08-19 2017-08-19 social Universit y of 00:00:00 00:00:00 [place] [facility] Cigarettes smoked 2016-12-04 2016-12-04 Univers ity of current (pack per 00:00:00 00:00:00 ) - Reported Branch Tobacco use and 2016-12-04 2016-12-04 Never used Universit y of exposure 00:00:00 00:00:00 [facility] History of tobacco 2012-12-04 2016 Cigarette Smoker University of use 00:00:00 00:00:00 [facility] Sex Ass[birth year] Universit y of 00:00:00 00:00:00 [facility] Smoking Status Start Date Stop Date Source Former smoker 2016-12-04 00:00:00 2016[facility] Medications Ordered Filled Start Stop Current Ordering Indication Dosage Frequency Signature Comments Components Source Medication Medication Date Date Medication? Clinician (SIG) Name Name No known No Univers medications 02-18 ity of 14:52: [address] ketorolac 2019- No 60mg 60 mg, Unive rs (TORADOL) 12-07 Intramuscu ity of injection 00:30: 00:30 [place], ONCE, [place] 60 mg 00 :00 1 dose, Medical [facility] 12/06/19 at 1830, JARVIS
Fa culty member approving Restricted medication : Astrid BUITRAGO amoxicillin 2019- No 500mg 500 mg, U nivers (TRIMOX) 12-07 Oral, ity of capsule 500 00:30: 23:34 [place]CE, 1 [place] :[place] dose, [facility] 12/06/19 at Branch 1830, JARVIS
Re ason for Anti-Infec tive: Documented Infection< br>Documen kiran Infection Site: HEENT
D uration of Therapy: 10 days ibuprofen Yes [id number] 600mg Take 1 Univers 600 mg 2-12 tablet by ity of tablet 00:00: mouth 00 every 6 Medical (six) Branch hours as needed for Pain (scale 4-6). ibuprofen Yes [id number] 600mg Take 1 Univers 600 mg 2-12 tablet by ity of tablet 00:00: mouth every 6 Medical (six) Branch hours as needed for Pain (scale 4-6). ibuprofen 2020- No [id number] 600mg Take 1 Univers 600 mg 2-09 27-27 tablet by ity of tablet 00:00: 00:00 mouth [place] 00 :00 every 6 Medical (six) Branch hours as needed for Pain (scale 4-6). ibuprofen 2020- No [id number] 600mg Take 1 Univers 600 mg 2-12 -27 tablet by ity of tablet 00:00: 00:00 mouth [place] 00 :00 every 6 Medical (six) Branch hours as needed for Pain (scale 4-6). ibuprofen 2020- No [id number] 600mg Take 1 Univers 600 mg 2-09 27- tablet by ity of tablet 00:00: 00:00 mouth [place] 00 :00 every 6 Medical (six) Branch hours as needed for Pain (scale 4-6). amoxicillin 2019- No [id number] 500mg Take 1 Univers 500 mg 12-06 capsule by ity of capsule 00:00: 05:59 mouth 3 [place] 00 :00 (three) Medical times Branch daily for 10 days. azithromyci 2018-0 Yes 1000mg Take 2 Un guillaume n 500 mg 5-15 tablets by ity o f tablet 00:00: mouth [place] 00 daily. Medical Branch azithromyci 2017-0 Yes 1000mg Take 2 Un guillaume n 500 mg 5-15 tablets by ity o f tablet 00:00: mouth [place] 00 daily. Medical Branch azithromyci 2017- Yes 1000mg Take 2 Un guillaume n 500 mg 5-15 tablets by ity o f tablet 00:00: mouth [place] 00 daily. Medical Branch azithromyci 2020- No 1000mg Take 2 U nivers n 500 mg 5-15 04-27 tablets by ity of tablet 00:00: 00:00 mouth [place] 00 :00 daily. Medical Branch azithromyci 2017-0 2020- No 1000mg Take 2 U nivers n 500 mg 5-15 04-27 tablets by ity of tablet 00:00: 00:00 mouth [place] 00 :00 daily. Medical Branch azithromyci 2017-0 2020- No 1000mg Take 2 U nivers n 500 mg 5-15 04-27 tablets by ity of tablet 00:00: 00:00 mouth [place] 00 :00 daily. Medical Branch Immunizations Ordered Immunization Filled Immunization Date Status Commen ts Source Name Name [facility] 2017-07-08 Completed University of 00:00:00 [facility] Varicella 2017-07-08 Completed University of (varivax)(chicken 00:00:00 [place] M edical pox) Branch HPV9 2017-07-08 Completed University of 00:00:00 [facility] Varicella 2017-07-08 Completed University of (varivax)(chicken 00:00:00 [place] M [place]ical pox) Branch HPV9 2017-07-08 Completed University of 00:00:00 [facility] Varicella 2017-07-08 Completed University of (varivax)(chicken 00:00:00 [place] M [place] pox) Branch [facility] 2017-07-08 Completed University of 00:00:00 [facility] Varicella 2017-07-08 Completed University of (varivax)(chicken 00:00:00 [place] M [place]ical pox) Branch HPV9 2017-07-08 Completed University of 00:00:00 [facility] Varicella 2017-07-08 Completed University of (varivax)(chicken 00:00:00 [place] M [place]ical pox) Branch HPV9 2017-07-08 Completed University of 00:00:00 [facility] Varicella 2017-07-08 Completed University of (varivax)(chicken 00:00:00 [place] M [place]ical pox) Branch HPV9 2017-07-08 Completed University of 00:00:00 [facility] Varicella 2017-07-08 Completed University of (varivax)(chicken 00:00:00 [place] M [place]ical pox) Branch TDAP 2017-05-04 Completed University of 00:00:00 [facility] TDAP 2017-05-04 Completed University of 00:00:00 [facility] TDAP 2017-05-04 Completed University of 00:00:00 [facility] Tdap 2017-05-04 Completed University of 00:00:00 [facility] Tdap 2017-05-04 Completed University of 00:00:00 [facility] TDAP 2017-05-04 Completed University of 00:00:00 [facility] TDAP 2017-05-04 Completed University of 00:00:00 [facility] PPD (TB) 2016-12-04 Completed University of 00:00:00 [facility] PPD (TB) 2016-12-04 Completed University of 00:00:00 [facility] PPD (TB) 2016-12-04 Completed University of 00:00:00 [facility] PPD (TB) 2016-12-04 Completed University of 00:00:00 [facility] PPD (TB) 2016-12-04 Completed University of 00:00:00 [facility] PPD (TB) 2016-12-04 Completed University of 00:00:00 [facility] PPD (TB) 2016-12-04 Completed University of 00:00:00 [facility] HEPATITIS A 2014-05-07 Completed University of 00:00:00 [facility] Meningococcal 2014-05-07 Completed University of Polysaccharide 00:00:00 [place] Medi jeffrey (groups A, C, Y and Branc h W-135) conjugate vaccine (MCV4P) Varicella 2009-06-06 Completed University of (varivax)(chicken 00:00:00 [place] [facility] [place] pox) Branch Meningococcal 2009-03-22 Completed University of Polysaccharide 00:00:00 [facility] jeffrey (groups A, C, Y and Branc h W-135) conjugate vaccine (MCV4P) TDAP 2009-03-15 Completed University of 00:00:00 [facility] MMR 2000-12-06 Completed University of 00:00:00 [facility] DTAP 2000-01-27 Completed University of 00:00:00 [facility] Polio (IPV/OPV) 2000-01-27 Completed Universit y of 00:00:00 [facility] Varicella 2000-01-27 Completed University of (varivax)(chicken 00:00:00 [place] M [place]ical pox) Branch MMR 1997-02-08 Completed University of 00:00:00 [facility] DPT/HIB 1997-02-08 Completed University of 00:00:00 [facility] Hep B, Adol or Pedi 1996-06-07 Completed Unive rsity of Dosage 00:00:00 [facility] Polio (IPV/OPV) 1996-06-07 Completed Universit y of 00:00:00 [facility] DPT/HIB 1996-06-07 Completed University of 00:00:00 [facility] HEPATITIS A 1996-06-06 Completed University of 00:00:00 [facility] Polio (IPV/OPV) 1996-04-11 Completed Universit y of 00:00:00 [facility] Branch DPT/HIB 1996-04-11 Completed University of 00:00:00 [facility] Branch Hep B, Adol or Pedi 1996-02-01 Completed Unive rsity of Dosage 00:00:00 [facility] Branch Polio (IPV/OPV) 1996-02-01 Completed Universit y of 00:00:00 [facility] Branch DPT/HIB 1996-02-01 Completed University of 00:00:00 [facility] Branch Hep B, Adol or Pedi 1995 Completed Unive rsity of Dosage 00:00:00 [facility] Vital Signs Vital Name Observation Time Observation Value Comments Source Systolic blood 2021-02-18 19:00:00 119 mm[Hg] Univer sity of pressure [facility] Diastolic blood 2021-02-18 19:00:00 79 mm[Hg] Unive rsity of pressure [facility] Heart rate 2021-02-18 19:00:00 82 /min Universi ty of [facility] Body temperature 2021-02-18 19:00:00 36.78 Natalie [facility] ersity of [facility] Respiratory rate 2021-02-18 19:00:00 16 /min Univ ersity of [facility] Body height 2021-02-18 19:00:00 160 cm Universi ty of [facility] Body weight 2021-02-18 19:00:00 97.977 kg Universi ty of [facility] BMI 2021-02-18 19:00:00 38.26 kg/m2 Universi ty [facility] Body temperature 2019-12-06 22:22:00 37.22 Natalie Univ ersity of [facility] Respiratory rate 2019-12-06 22:22:00 18 /min [facility] Body height 2019-12-06 22:22:00 160 cm Universi ty of [facility] Branch Body weight 2019-12-06 22:22:00 83.915 kg Universi ty of [facility] BMI 2019-12-06 22:22:00 32.77 kg/m2 Universi ty [facility] Oxygen saturation in 2019-12-06 22:22:00 98 /min [facility] Arterial blood by [facility] Pulse oximetry Branch Systolic blood 2019-12-06 22:22:00 133 mm[Hg] Univer sity of pressure [facility] Diastolic blood 2019-12-06 22:22:00 75 mm[Hg] Unive rsity of pressure [facility] Heart rate 2019-12-06 22:22:00 83 /[facility] 2019-12-06 22:22:00 37.22 Natalie [facility] Respiratory rate 2019-12-06 22:22:00 18 /min [facility] Body height 2019-12-06 22:22:00 160 cm [facility] Body weight 2019-12-06 22:22:00 83.915 kg [facility] BMI 2019-12-06 22:22:00 32.77 kg/m2 [facility] Oxygen saturation in 2019-12-06 22:22:00 98 /min [facility] Arterial blood by [facility] Pulse oximetry Branch Systolic blood 2019-12-06 22:22:00 133 mm[Hg] Univer sity of pressure [facility] Diastolic blood 2019-12-06 22:22:00 75 mm[Hg] Unive rsity of pressure [facility] Heart rate 2019-12-06 22:22:00 83 /min [facility] Procedures Procedure Date / Time Performed Performing Clinician Best delatorre POCT TEST 2021-02-18 19:06:00 [facility] 2021-02-18 18:37:05 Doctor Unassigned, No [facility] POCT TEST 2019-12-06 23:33:00 Astrid Buitrago [facility] NOTICE OF PRIVACY 2019-12-06 22:00:22 Doctor Unassigned, No Univ [facility] CONSENT/REFUSAL FOR 2019-12-06 22:00:07 [facility]assigned, No [facility] TREATMENT Encounters Start End Encounter Admission Attending Care Care Encounter Source Date/Time Date/Time Type Type Clinicians Facility Department ID 2022-02-13 2022-02-13 Outpatient R [facility] [id number] Univers 10:00:00 10:00:00 [id number] [facility]-01-01 2022[facility]01-01 [facility] [id number] Univers 00:00:00 00:00:00 Rosfaheem R CHOCOLATE PACKER [id number] ity of [facility] [id number] Alberto as MATERNAL [id number] [facility] ical & CHILD [address] [place] [address] 2021-09-01 2021-09-01 Outpatient R [facility] [id number] Univers 13:30:00 13:30:00 [id number] ity [facility] 2021-09-01 2021-09-01 Outpatient R [facility] [id number] Univers 13:30:00 13:30:00 ity [facility] 2021-09-01 2021-09-01 Outpatient R MIRLANDE [facility] [id number] Univers 13:30:00 13:30:00 KASIA ity o [facility] 2021-03-19 2021-03-19 [facility] [id number] Univers 10:15:00 10:15:00 PAIGE [id number] ity o [facility] 2021-03-19 2021-03-19 [facility] [id number] Univers 10:15:00 10:15:00 QUITAA ity o [facility] 2021-03-04 2021-03-04 [facility] [id number] Univers 13:15:00 13:15:00 PAIGE [id number] ity o [facility] 2021-03-04 2021-03-04 [facility] [id number] Univers 13:15:00 13:15:00 KULDIPNDA [facility] o [facility] 2021-02-18 2021-02-18 [facility] [id number] Univers 13:44:02 14:37:25 Visit Marquisefaheem R CHOCOLATE PACKER [id number] ity [facility] [id number] Alberto as MATERNAL [id number] [facility] [address] [place] [address] 2021-02-18 2021-02-18 Outpatient Varun [facility] [id number] Univers 13:30:00 13:30:00 PAIGE [id number] ity o [facility] 2021-02-18 2021-02-18 Outpatient Varun TUTTLE [facility] [id number] Univers 13:30:00 13:30:00 PAIGE ity o f [facility] 2021-02-18 2021-02-18 Orders Doctor JOSI [id number] Univers 00:00:00 00:00:00 Only Unassigned, CAMILO [id number] ity of [facility] [id number] Alberto as [id number] [place] [id number] Branch 2019-12-06 2019-12-06 Emergency Astrid Buitrago [facility] [id number] 16:24:12 18:19:00 Sravani Estrada [id number] [place] [id number] [place] [id number] [facility] 2019-12-06 2019-12-06 Emergency Theodore [facility] [id number] Univers 16:24:12 18:19:00 Sravani Estrada [id number] i ty of [place] [id number] [place] [id number] [place] [address] Branch 2019-12-06 2019-12-06 Orders Doctor JOSI [id number] 00:00:00 00:00:00 Only Unassigned, CAMILO [id number] [facility] [id number] 2019-12-06 2019-12-06 Orders Doctor JOSI [id number] Univers 00:00:00 00:00:00 Only Unassigned, CAMILO [id number] ity of [facility] [id number] Alberto as [id number] [address] Results Test Description Test Time Test Comments Results Result Comments Source POCT TEST 2021-02-18 19:06:00 Test Item Value Reference Range Interpretation Comme nts POCT PREG (test code = 1605) Negative On board controls acceptable with C Line (test code = 3574) Yes POCT PREG LOT # (test code = 3575) POCT PREG TEST DATE (test code = 3576) Lab Interpretation (test code = 78104-9) [id number] 19:06:00 Test Item Value Reference Range Interpretation Comments POCT PREG (test code = 1605) Negative On board controls acceptable with C Yes Line (test code = 3574) POCT PREG LOT # (test code = 3575) POCT PREG TEST DATE (test code = 3576) Lab Interpretation (test code = Normal 10102-7) [facility] [id number] 19:06:00 Test Item Value Reference Range Interpretation Comments POCT PREG (test code = 1605) Negative On board controls acceptable with C Yes Line (test code = 3574) POCT PREG LOT # (test code = 3575) POCT PREG TEST DATE (test code = 3576) Lab Interpretation (test code = Normal 29508-9) [facility] [id number] 23:33:00 Test Item Value Reference Range Interpretation Comments POCT PREG (test code = 1605) negative On board controls acceptable with present C Line (test code = 3574) POCT PREG LOT # (test code = 3575) [id number] POCT PREG TEST DATE (test code = 3576) Lab Interpretation (test code = Normal 25098-2) [facility]
[2022-03-20 09:44] LABS: Urine Blood Trace-intact (Negative); Urine Glucose Negative (Negative); Urine Protein 1+ (Negative); Urine Specific Gravity >=1.030 (1.005-1.030); Urine pH 5.5 (5.0-7.0)
[2022-03-20] MEDS ORDERED: ONDANSETRON 4 MG (ODT) TAB ONE (09:59)
[2022-03-20] MEDS ORDERED: ACETAMINOPHEN 325 MG TABLET ONE (09:59)
--- NOTE | 2022-03-20 11:20 | ER ---
Nurse's Notes [facility] Name: Gloria Yeh Age: 26 yrs Sex: Female : 1995 Arrival Date: 03/20/2022 Time: 09:12 Bed Treatment Private MD: Diagnosis: Acute pharyngitis, unspecified;Vomiting Presentation: 03/20 09:42 Chief complaint: Patient states: nausea, chills, sweats, fatigue, also had ear pain and iw sore throat 4-5 days ago. Coronavirus screen: Client presents with at least one sign or symptom that may indicate coronavirus-19. Ebola Screen: Patient negative for fever greater than or equal to 101.5 degrees Fahrenheit, and additional compatible Ebola Virus Disease symptoms Patient denies exposure to infectious person. Patient denies travel to an Ebola-affected area in the 21 days before illness onset. No symptoms or risks identified at this time. Initial Sepsis Screen: Does the patient meet any 2 criteria? No. Patient's initial sepsis screen is negative. Does the patient have a suspected source of infection? No. Patient's initial sepsis screen is negative. Risk Assessment: Do you want to hurt yourself or someone else? Patient reports no desire to harm self or others. Onset of symptoms. 09:42 Method Of Arrival: Ambulatory iw 09:42 Acuity: SYED 4 iw Triage Assessment: 11:25 General: Appears in no apparent distress. comfortable, Behavior is calm, cooperative, ap3 appropriate for age. Pain: Denies pain. Respiratory: Airway is patent Respiratory effort is even, unlabored. 11:26 Respiratory: Breath sounds are clear. ap3 CASH PERSON: 11:25 LMP N/A - na ap3 Historical: - Allergies: 09:43 No Known Allergies; iw - Home Meds: 09:43 None [Active]; iw - Immunization history:: Adult Immunizations unknown. - Social history:: Smoking status: unknown. Screenin:25 Abuse screen: Denies threats or abuse. Nutritional screening: No deficits noted. ap3 Tuberculosis screening: No symptoms or risk factors identified. Fall Risk None identified. Vital Signs: 10:19 BP 115 / 65; Pulse 79; Resp 16; Temp 97.6; Pulse Ox 98% on R/A; iw ED Course: 09:12 Patient arrived in ED. ja2 09:16 Mickail, Jonathan, PA is PHCP. [facility] 09:16 Robert Cheatham MD is Attending Physician. [facility] 09:43 Triage completed. iw 09:43 Arm band placed on. iw 09:46 Arabella Garcia, RN is Primary Nurse. iw 09:54 SARS-COV-2 RT PCR (Document "Date of Onset" if Symptomatic) Sent. mb7 09:54 Influenza Screen (a \\T\\ B) Sent. mb7 11:25 No provider procedures requiring assistance completed. Patient did not have IV access ap3 during this emergency room visit. 11:26 Patient has correct armband on for positive identification. Bed in low position. Call ap3 light in reach. Pulse ox on. NIBP on. Door closed. Noise minimized. Administered Medications: 09:57 Drug: Ondansetron 4 mg Route: PO; iw 11:27 Follow up: Response: No adverse reaction ap3 09:57 Drug: Tylenol 650 mg Route: PO; iw 11:27 Follow up: Response: No adverse reaction ap3 Medication: 11:25 VIS not applicable for this client. ap3 Outcome: 11:20 Discharge ordered by . [facility] 11:26 Discharged to home ambulatory. ap3 11:26 Condition: good 11:26 Discharge instructions given to patient, Instructed on discharge instructions, follow up and referral plans. medication usage, Demonstrated understanding of instructions, follow-up care, medications, Prescriptions given X 3. 11:28 Patient left the ED. ap3 Signatures: Jonathan Landis PA PA jmm Williams, Irene, RN ROXANNA Daysi García RN RN ap3 Safia Ferrer [facility] Chloé Garcia [facility]
--- NOTE | 2022-03-20 11:21 | EDPHYS ---
Physician Documentation [facility] Name: Gloria Yeh Age: 26 yrs Sex: Female : 1995 Arrival Date: 03/20/2022 Time: 09:12 Bed Treatment Private MD: ED Physician Robert Cheatham HPI: 03/20 09:24 This 26 yrs old Black Female presents to ER via Ambulatory with complaints of jmm Congestion, Nausea, Vomiting, Fever. 09:24 Onset: The symptoms/episode began/occurred gradually. jmm 09:24 Modifying factors: The symptoms are alleviated by nothing. the symptoms are aggravated jmm by nothing. 26-year-old female with no chronic medical conditions of presents emerged part with complaints of cough, congestion, left ear pain, sinus congestion, nausea and vomiting. Symptoms began approximately 3 days ago but worsened today with vomiting. Patient denies abdominal pain or diarrhea. Patient denies any known infectious exposure.. HEAD OF ENGLISH: 11:25 LMP N/A - na ap3 Historical: - Allergies: 09:43 No Known Allergies; iw - Home Meds: 09:43 None [Active]; iw - Immunization history:: Adult Immunizations unknown. - Social history:: Smoking status: unknown. ROS: 09:24 Constitutional: Positive for body aches, chills. jmm 09:24 ENT: Positive for sore throat. 09:24 Respiratory: Positive for cough. 09:24 Abdomen/GI: Positive for nausea and vomiting. 09:24 All other systems are negative. Exam: 09:24 Constitutional: This is a well developed, well nourished patient who is awake, alert, jmm and in no acute distress. Head/Face: atraumatic. Eyes: EOMI, no conjunctival erythema appreciated 09:24 Neck: Trachea midline, Supple Chest/axilla: Normal chest wall appearance and motion. Cardiovascular: Regular rate and rhythm. No edema appreciated Respiratory: Normal respirations, no respiratory distress appreciated Abdomen/GI: Non distended, soft Back: Normal ROM Skin: General appearance color normal MS/ Extremity: Moves all extremities, no obvious deformities appreciated, no edema noted to the lower extremities Neuro: Awake and alert Psych: Behavior is normal, Mood is normal, Patient is cooperative and pleasant 09:24 ENT: TM's: erythema, that is moderate, on the left, Posterior pharynx: erythema, that is mild. Vital Signs: 10:19 BP 115 / 65; Pulse 79; Resp 16; Temp 97.6; Pulse Ox 98% on R/A; iw MDM: 09:26 Patient medically screened. [facility] 11:19 Data reviewed: vital signs, nurses notes. Counseling: I had a detailed discussion with winter the patient and/or guardian regarding: the historical points, exam findings, and any diagnostic results supporting the discharge/admit diagnosis, lab results, the need for outpatient follow up, to return to the emergency department if symptoms worsen or persist or if there are any questions or concerns that arise at home. ED course: Patient is alert nontoxic in appearance NAD. Patient advised follow-up PCP and otherwise given strict return precautions. Patient was able to tolerate p.o.. 03/20 09:24 Order name: Influenza Screen (a \\T\\ B); Complete Time: 10:33 [facility] 03/20 09:24 Order name: SARS-COV-2 RT PCR (Document "Date of Onset" if Symptomatic); Complete Time: [facility] 10:48 03/20 09:44 Order name: Urine Dipstick-Ancillary; Complete Time: 09:50 [facility] 03/20 09:25 Order name: Urine Dipstick-Ancillary (obtain specimen); Complete Time: 09:44 [facility] 03/20 09:25 Order name: Urine Test (obtain specimen); Complete Time: 09:44 [facility] Administered Medications: 09:57 Drug: Ondansetron 4 mg Route: PO; iw 11:27 Follow up: Response: No adverse reaction ap3 09:57 Drug: Tylenol 650 mg Route: PO; iw 11:27 Follow up: Response: No adverse reaction ap3 Disposition: 18:18 Co-signature as Attending Physician, Robert Cheatham MD. rn Disposition Summary: 03/20/22 11:20 Discharge Ordered Location: Home [facility] Condition: Stable garrett Diagnosis - Acute pharyngitis, unspecified [facility] - Vomiting [facility] Followup: garrett - With: Private Physician - When: 2 - 3 days - Reason: Recheck today's complaints, Continuance of care, Re-evaluation by your physician Discharge Instructions: - Discharge Summary Sheet garrett - Pharyngitis garrett - Vomiting, Adult [facility] Forms: - Medication Reconciliation Form [facility] - Thank You Letter jmm - Antibiotic Education jmm - Prescription Opioid Use jmm - Work release form ap3 Prescriptions: - ondansetron 4 mg Oral tablet,disintegrating - take 1 tablet by ORAL route every 4-6 hours; 20 tablet; Refills: 0, Product [facility] Selection Permitted - promethazine-DM - take 5 milliliter by ORAL route every 4-6 hours; 120 milliliter; Refills: 0, [facility] Product Selection Permitted - cefdinir 300 mg Oral capsule - take 1 capsule by ORAL route every 12 hours for 10 days; 20 capsule; Refills: [facility] 0, Product Selection Permitted Signatures: Dispatcher [employer] EDJonathan Quiroz PA PA jmm Williams, Irene, RN RN iw Nieto, Roman, MD MD rn Prokisch, Amanda, RN RN ap3
[2022-03-20 11:34] VITALS: BP 115/65; TEMP 97.6; O2SAT 98
== END 2022-03-20 11:28 | disposition home or self-care (01) ==
LOC: ER 09:10
DX: J02.9 Acute pharyngitis, unspecified (principal); R11.2 Nausea with vomiting, unspecified; Z20.822 Contact with and (suspected) exposure to COVID-19
CPT/HCPCS: 81003; 87804 ×2; 99284; U0003